=== PATIENT | female | born 1975 | race Caucasian/White ===

== ENCOUNTER 2022-05-24 17:08 | Emergency (ER) | payer BC, SELFPAY ==
[2022-05-24 17:33] VITALS: BP 130/82; PULSE 71; RESP 18; TEMP 36.2; O2SAT 100; BMI 31.0
--- NOTE | 2022-05-24 17:55 | ED.NURSE ---
MD in room to perform breast exam with commercial real estate underwriter at bedside.
--- NOTE | 2022-05-24 18:03 | ED.GENADULT ---
HPI - General Adult General Time Seen by Provider: 18:03 Date Seen: 05/24/22 Chief complaint: Breast Symptoms Stated complaint: Breast Pain Time Seen by Provider: 05/24/22 17:11 Source: patient Mode of arrival: ambulatory Limitations: no limitations History of Present Illness HPI narrative: Patient is a 39 year white female has right breast tenderness. She notices soreness at the base of the breast and when she squeezes her breast at the base at the chest wall junction of the breast. She has noticed no palpable masses, does not recall any injury. She has noticed no redness. She feels maybe the right breast is a little more swollen. No fevers or chills. No trauma. No history of bleeding or clotting problems patient has had saphenous vein resection lower extremities Related Data Home Medications Medication Instructions Recorded Confirmed albuterol sulfate 90 mcg/actuation g inhalation 05/24/22 05/24/22 aerosol inhaler (Ventolin HFA) duloxetine 30 mg capsule,delayed applicator PO 05/24/22 05/24/22 release hydroxychloroquine 200 mg tablet ea PO 05/24/22 05/24/22 lorazepam 1 mg tablet 1 mg PO PRN 05/24/22 05/24/22 prednisone 5 mg tablet 5 mg PO PRN 05/24/22 05/24/22 Previous Rx's Medication Instructions Recorded dicloxacillin 500 mg capsule 500 mg PO QID #30 caps 05/24/22 Allergies Allergy/AdvReac Type Severity Reaction Status Date / Time No Known Drug Allergies Allergy Verified 05/24/22 17:32 Review of Systems Status of ROS: Reports: 6 or more systems reviewed and unremarkable except as noted in History and below [facility] Social History Smoking Status: Never smoker Do you use any of these nicotine containing products: None Second hand tobacco smoke exposure: No How often do you have a drink containing alcohol: 2-3 times a week How many standard drinks containing alcohol do you have on a typical day: 1 or 2 How often do you have six or more drinks on one occasion: Less than monthly AUDIT-C Alcohol total score: 4 Non-prescribed substance use: denies use service: No Exam Narrative: Exam Narrative: Objective the patient's vital signs unremarkable She is in no apparent distress Right breast with nursing staff suman, present, examination of the right breast shows tenderness at the base of the breast and in the body of the breast no palpable masses, no redness or warmth maybe some just very slight right breast enlargement there is no dimpling of the skin over the breast, no discrete palpable mass. Definitely can recreate her symptoms with palpation however Const: Vital Signs, click to edit/add: Vital Signs - 24 hr 05/24/22 17:33 Temperature 97.1 F L Pulse Rate [Pulse Oximeter] 71 Respiratory Rate 18 Blood Pressure [Ri t Upper Arm] 130/82 Pulse Oximetry 100 Oxygen Delivery Me thod Room Air Course Vital Signs Vital signs: Initial Vital Signs Temperature 97.1 F L 05/24/22 17:33 Temperature Source Temporal Artery Scan 05/24/22 17:33 Pulse Rate 71 05/24/22 17:33 Pulse Rhythm 05/24/22 17:33 Respiratory Rate 18 05/24/22 17:33 Blood Pressure 130/82 05/24/22 17:33 Blood Pressure Mean 98 05/24/22 17:33 Blood Pressure Position Supine 05/24/22 17:33 Pulse Oximetry 100 05/24/22 17:33 Oxygen Delivery Method 05/24/22 17:33 Vital Signs Temperature 97.1 F L 05/24/22 17:33 Pulse Rate 71 05/24/22 17:33 Respiratory Rate 18 05/24/22 17:33 Blood Pressure 130/82 05/24/22 17:33 Pulse Oximetry 100 05/24/22 17:33 Oxygen Delivery Method 05/24/22 17:33 Temperature 97.1 F L 05/24/22 17:33 Pulse Rate 71 05/24/22 17:33 Respiratory Rate 18 05/24/22 17:33 Blood Pressure 130/82 05/24/22 17:33 Pulse Oximetry 100 05/24/22 17:33 Oxygen Delivery Method 05/24/22 17:33 Medical Decision Making MDM Narrative Medical decision making narrative: Given the superficial nature of her discomfort I think this is more inflammatory versus mild infection in the breast I would treat her with dicloxacillin 500 q.i.d. x7 days would also have her take ibuprofen or Aleve on a regular basis light activity firm support for the next several days and follow up with her primary care physician in 2-3 days for reassessment, certainly return to ED sooner problems or concerns. Discharge Plan Discharge Clinical Impression: Acute breast pain Patient Disposition: Home, Self-Care Condition: Stable Additional Instructions: Hair Blender activity, firm support, antibiotic x7 days, Advil or Aleve times 5-7 days, follow-up with primary care in 2 3 days Activity Level: Light activity Discharge Diet: Regular Prescriptions: New dicloxacillin 500 mg capsule 500 mg PO QID Qty: 30 0RF No Action hydroxychloroquine 200 mg tablet PO Label Comments: TAKE 1 TABLET BY MOUTH ONCE DAILY duloxetine 30 mg capsule,delayed release(DR/EC) PO lorazepam 1 mg tablet 1 mg PO PRN Label Comments: TAKE 1 TABLET BY MOUTH AT BEDTIME NEEDED . TAKE 0.5 (ONE-HALF) TO 1 ADDITIONAL TABLET DAILY IF NEEDED. prednisone 5 mg tablet 5 mg PO PRN albuterol sulfate [Ventolin HFA] 90 mcg/actuation HFA aerosol inhaler inhalation Label Comments: INHALE 2 PUFFS BY MOUTH EVERY 4 HOURS NEEDED Follow Up/Referrals: Provider,Not a Local [Primary Care Provider] - Stand Alone Forms: [facility] Info Instructions
--- OUTSIDE RECORDS SUMMARY | 2022-05-30 16:18 | XMS_ITS | Continuity of Care Document ---
:1975 Author Organization [facility] Care Team Providers Name Role Phone [facility] Unavailable Unavailable Social History Combined list of available smoking, tobacco, and other social history [facility]. Social History Type Response Date Comment Source This section is an empty social history section. [facility]
--- OUTSIDE RECORDS SUMMARY | 2022-05-30 16:18 | XMS_ITS | Clinical Summary ---
:1975 Author Organization [facility] [place] [address] Care Team Providers Name Role Phone Lisa Alfredo MD Primary Care Provider [phone] Allergies No known active allergies Medications Medication Sig Dispensed Refills Start Date End Date Status triamcinolone 0.025% Apply topically 80 g 1 04/07/2021 Active topical (ARISTOCORT) to affected 0.025 % area(s) 2 times creamIndications: daily. Dermatitis Ventolin HFA 90 2 Puffs every 4 0 11/09/2021 Active mcg/actuation inhaler hours if needed. hydrOXYchloroQUINE Take 200 mg by 0 12/21/2021 Active (PLAQUENIL) 200 mg mouth once tablet daily. polyethylene glycol Mix 17 g in 0 03/29/2022 Active (MIRALAX; GLYCOLAX) 17 g liquid then take powder for solution by mouth. sennosides-docusate Take 1 Tablet by 0 04/04/2022 Active (SENOKOT S) (8.6-50 mg) mouth once tablet daily. LORazepam (ATIVAN) 1 mg TAKE 1 TABLET BY 30 Tablet 0 2 Active tabletIndications: MOUTH AT BEDTIME Insomnia, idiopathic NEEDED . 1/2 TO 1 ADDITIONAL TABLET DAILY IF NEEDED DULoxetine (CYMBALTA) 30 Take 1 capsule 30 Capsule 0 2 Active mg Delayed-release by mouth once capsuleIndications: daily Generalized anxiety disorder, Palpitations Active Problems Problem Noted Date Inflammatory polyarthritis 03/07/2018 Overview: Dr. Chloé Ta. On plaquinel. Insomnia 04/30/2013 Chronic interstitial cystitis 10/28/2010 Overview: Dr. Valero, urologist. Not seen for some time. Major depressive disorder, recurrent episode, in full remission 04/14/2010 Generalized anxiety disorder 04/14/2010 Seasonal allergies 04/13/2010 Routine health maintenance 04/13/2010 Overview: Last cpx-05/26 Last breast exam-03/28 Last lipid 05/26, LDL-75 Family history of colonic polyps Resolved Problems Problem Noted Date Resolved Date Depression with anxiety 04/13/2010 04/14/2010 Encounters Date Type Specialty Care Team Description 04/21/2022 E-Visit Perla, Shanika 04/13/2022 Anesthesia Event Paul Gutiérrez MD 04/13/2022 Surgery Geoff Cintron MD 04/13/2022 Hospital Encounter Geoff Cintron MD 04/13/2022 Travel 04/11/2022 Refill Lisa Alfredo MD (Duloxetine) 04/04/2022 Ancillary Procedure 04/04/2022 Office Visit Charis Roberto, Consult ( 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) 04/04/2022 Refill Lisa Alfredo MD (Lorazepam) 04/04/2022 Travel from Last 3 Months Immunizations Name Administration Dates Next Due COVID-19 vaccine (Karen-J&J) MYRIAM DAVENPORT 10/25/2020 Hepatitis A (Adult) 03/22/2009, 03/05/2007 Hepatitis A, Unspecified 02/03/2007 Influenza, IIV3 (Age >=3 years) 05/04/2011, 05/12/2010 Influenza,LAIV4 Live Intranasal (Flumist) 07/10/2014, 2011 Td (Age >=7 Years) 06/17/2004 Tdap 07/01/2012 Tuberculin (PPD) 11/13/2006 Family History Medical History Relation Name Comments Hypertension Brother Other Daughter 1 adopt-Caleb Other Daughter 2 adopt-Yolis Cancer-colon Father polyps Hyperlipidemia Father Diverticulosis Mother Hypertension Mother Uterine cancer Mother Hyperlipidemia Paternal Aunt Heart Disease Paternal Grandfather Hyperlipidemia Paternal Grandfather Good Health Paternal Grandmother dementia Other Paternal Grandmother Coronary artery disease Paternal Uncle NM Hyperlipidemia Paternal Uncle Good Health Son 1 Hargill Good Health Son 2 Conor Relation Name Status Comments Brother Alive Daughter 1 adopt-Caleb Alive Daughter 2 adopt-Yolis Alive Father Alive Maternal Grandfather (Age 70's) emphyse ma Maternal Grandmother (Age late 70's) em physema Mother Alive Paternal Aunt Paternal Grandfather (Age 50) [place] Paternal Grandmother Paternal Uncle Son 1 [place] Alive Son 2 Conor Alive Social History Tobacco Use Types Packs/Day Years Used Date Never Smoker Smokeless Tobacco: Never Used Tobacco Cessation: Counseling Given: Yes Alcohol Use Standard Drinks/Week Comments Yes 0 (1 standard drink = 0.6 oz pure alcoho l) 2 weekly Alcohol Habits Answer Date Recorded How often do you have a drink containing alcohol? 2-3 times a week 08/11/2020 How many drinks containing alcohol do you have on a 1 or 2 08/11/2020 typical day when you are drinking? How often do you have six or more drinks on one Less than mo nthly 08/11/2020 occasion? Comment: 2 weekly 04/04/2021 Sex Assigned at Date Recorded Not on file Obstetrics History Para Term AB IAB SAB Ectopic Multiple Living Live Births 2 2 2 Date Outcome GA Total Labor/2nd/3rd Weight Sex Delivery Anes PTL Essence A 1 A5 Name Clin Labor Term Term Comments No complications Last Filed Vital Signs Vital Sign Reading Time Taken Comments Blood Pressure 120/81 04/13/2022 12:22 PM CDT Pulse 66 04/13/2022 12:22 PM CDT Temperature 36.5 ??C (97.7 ??F) 04/13/2022 11:53 AM CDT Respiratory Rate 16 04/13/2022 12:22 PM CDT Oxygen Saturation 99% 04/13/2022 12:22 PM CDT Inhaled Oxygen Concentration - - Weight 86.8 kg (191 lb 6.4 oz) 04/13/2022 10:31 AM CDT Height 167.6 cm (5' 6) 04/13/2022 10:31 AM CDT Body Mass Index 30.89 04/13/2022 10:31 AM CDT Plan of Treatment Health Maintenance Due Date Last Done Comments Hepatitis C screening for age 1005/23/1992 18-79 COVID-19 vaccine series (2 - 12/20/2020 10/25/2020 Booster for Karen series) Mammogram for age 45-75 12/16/2021 12/16/2020 Depression screening for age 12+ 04/04/2022 04/04/2021, , 04/01/2020, Additional history exists Influenza for age 9-49 04/20/2022 07/10/2014, 07/01/2012, 05/04/2011, Additional history exists Tetanus booster 07/01/2022 07/01/2012, 06/17/2004 Lipids for age 45-75 03/07/2023 03/07/2018, 02/04/2016, 04/14/2010 BMI (ht and wt on same day) for 04/04/2023 04/04/2022, 03/20, age 18+ 11/05/2020, Additional history exists Pap test for age 21-65 04/04/2026 04/04/2021, 04/04/2021, 02/07/2017, Additional history exists Colonoscopy through age 75 04/13/2027 04/13/2022 Tdap Completed 07/01/2012 Procedures Procedure Name Priority Date/Time Associated Diagnosis Comme nts COLONOSCOPY 04/13/2022 11:30 hemorroids, AM CDT diverticulosis COLONOSCOPY 04/13/2022 11:16 Results for this AM CDT procedure are i n the results section. URINE Preop 04/13/2022 10:16 Results for this AM CDT procedure are i n the results section. TISSUE TRANSGLUTAMINASE Routine 04/04/2022 9:55 Constipation, Results for this IGA AM CDT unspecified procedure are i n constipation type the result s section. PLATELET ESTIMATE Routine 04/04/2022 9:55 Constipation, Result s for this AM CDT unspecified procedure are i n constipation type the result s section. CBC WITH AUTO Routine 04/04/2022 9:55 Constipation, Results fo r this DIFFERENTIAL AM CDT unspecified procedure are i n constipation type the result s section. CELIAC CASCADE PANEL Routine 04/04/2022 9:55 Constipation, Res ults for this AM CDT unspecified procedure are i n constipation type the result s section. TSH WITH REFLEX Routine 04/04/2022 9:55 Constipation, Results for this AM CDT unspecified procedure are i n constipation type the result s section. BASIC METABOLIC PANEL Routine 04/04/2022 9:55 Constipation, Re sults for this AM CDT unspecified procedure are i n constipation type the result s section. HEPATIC FUNCTION PANEL Routine 04/04/2022 9:55 Constipation, R esults for this AM CDT unspecified procedure are i n constipation type the result s section. CBC WITH AUTO Routine 04/04/2022 9:55 Constipation, Results fo r this DIFFERENTIAL AM CDT unspecified procedure are i n constipation type the result s section. XR ABDOMEN 2 VIEW FLAT Routine 04/04/2022 9:47 Constipation, R esults for this AND UPRIGHT OR AM CDT unspecified procedure are in DECUBITUS constipation type the result s section. from Last 3 Months Results COLONOSCOPY (04/13/2022 11:16 AM CDT) Specimen (Source) Anatomical Collection Method Collection Time Re ceived Time Location / / Volume Laterality 04/13/2022 11:16 AM CDT Narrative This result has an attachment that is no t available. Transcriptions Geoff Cintron MD - 04/13/2022 12 :44 PM CDT [facility] Patient Name: Jenny Em Procedure Date: 04/13/2022 Gender: Female Date of : 1975 Admit Type: Ambulatory Procedure: Colonoscopy Proceduralist: Geoff Cintron MD Referring MD: Charis Roberto Indications/Pre-Op Diagnosis: Screening in patient at increased risk: Family history of 1st-degree relative with col orectal cancer before age 60 years Medications: Monitored Anesthesia Care Procedure Description: The patient had risks, benefits and alt ernatives explained to and gave informed consent. The patient had a sta ble cardiopulmonary status and judged an adequate candidate for consci ous sedation. The endoscope [id number]-[id number] was pas sed through the anus and advanced to the cecum, identified by appendiceal orifice and ileocecal valve. The colonoscopy was performed without diffi culty. The patient tolerated the procedure well. The quality of the peg l preparation was good. Complications: No immediate complication s. Estimated Blood Loss & Specimen: Estimated blood loss: none. Specimen collected: None Findings: Normal mucosa was found in the entire c olon. A few small-mouthed diverticula were fo und in the sigmoid colon and descending colon. Internal hemorrhoids were found during retroflexion. The hemorrhoids were Grade II (internal hemorrhoids ilia t prolapse but reduce spontaneously). The exam was otherwise without abnormal ity. Impressions/Post-Op Diagnosis: - Normal mucosa in the entire examined colon. - Diverticulosis in the sigmoid colon a nd in the descending colon. - Internal hemorrhoids. - The examination was otherwise normal. - No specimens collected. Recommendation: - Repeat colonoscopy in 5 years for juli veillance. - High fiber diet Geoff Cintron MD 04/13/2022 12:44:38 PM This report has been signed electronical ly. Note Initiated On: 04/13/2022 11:16 AM Scope Withdrawal Time 0 hours 7 minutes 30 seconds Total Procedure Duration Time 0 hours 15 minutes 6 seconds Geoff Cintron MD PROCEDURE ORD Urine (04/13/2022 10:16 AM CDT) [facility] Signature ,URIN Negative Negative 04/13/2022 [place] [facility] 10:28 AM CDT [facility] Specimen Anatomical Collection Method Collection Time Receive d Time (Source) Location / / Volume Laterality Urine URINE SPECIMEN / Non-Blood / 04/13/2022 10:16 022 Unknown Unknown AM CDT 10:16 AM CDT Cahris Roberto COMPUTER COMPOSITOR URINE Performing Organization Address City/State/ZIP Code Phon e Number [facility] INTERNAL ZIP [address] [place] [address] CELIAC CASCADE PANEL (04/04/2022 9:55 AM CDT) P athologist Signature IGA 135.68 84.50 - 04/05/2022 [facility] 499.00 8:01 AM CDT LABORATORY-CENT mg/dL [facility] Specimen Anatomical Collection Method Collection Time Receive d Time (Source) Location / / Volume Laterality Blood BLOOD SPECIMEN / Butterfly / 04/04/2022 9:55 AM 04/04 9:56 Unknown Unknown CDT AM CDT Narrative [facility] LABORATORY-CENTRAL LABORAT ORY - 04/05/2022 8:01 AM CDT Reflexed to Tissue Transglutaminase IgA Charis Roberto COMPUTER COMPOSITOR SEND OUTS Performing Organization Address City/State/ZIP Code Phon e Number [facility] [address] [place] [address] LABORATORY-CENTRAL 2000 LABORATORY (ABNORMAL) CBC WITH AUTO DIFFERENTIAL (04/04/2022 9:55 AM CDT) Patholo gist Method Time Signature WHITE BLOOD 7.4 4.5 - 11.0 04/04/2022 [facility] COUNT thou/cu mm 11:15 AM CDT [facility] RED BLOOD COUNT 5.18 4.00 - 04/04/2022 [facility] 5.20 11:15 AM CDT [facility] mil/cu mm CENTER HEMOGLOBIN 15.5 12.0 - 04/04/2022 [facility] 16.0 g/dL 11:15 AM CDT [facility] HEMATOCRIT 47.4 33.0 - 04/04/2022 [facility] 51.0 % 11:15 AM CDT [facility] MCV 92 80 - 100 04/04/2022 [facility] fL 11:15 AM CDT [facility] MCH 29.9 26.0 - 04/04/2022 [facility] 34.0 pg 11:15 AM CDT [facility] MCHC 32.7 32.0 - 04/04/2022 [facility] 36.0 g/dL 11:15 AM CDT [facility] RDW 13.8 11.5 - 04/04/2022 [facility] 15.5 % 11:15 AM CDT [facility] PLATELET COUNT 273 140 - 440 04/04/2022 [facility] thou/cu mm 11:15 AM CDT [facility] MPV 11.5 (H) 6.5 - 11.0 04/04/2022 [facility] fL 11:15 AM CDT [facility] NRBC 0.0 % 04/04/2022 [facility] 11:15 AM CDT [facility] ABS NRBC 0.0 thou /cu 04/04/2022 [facility] mm 11:15 AM CDT [facility] % NEUT 57.8 % 04/04/2022 [facility] 11:15 AM CDT [facility] % LYMPH 31.0 % 04/04/2022 [facility] 11:15 AM CDT [facility] % MONO 6.4 % 04/04/2022 [facility] 11:15 AM CDT [facility] % EOS 3.0 % 04/04/2022 [facility] 11:15 AM CDT [facility] % BASO 1.4 % 04/04/2022 [facility] 11:15 AM CDT [facility] % IMMATURE GRAN 0.4 % 04/04/2022 [facility] (METAS,MYELOS,SC 11:15 AM CDT [facility] M ED OS) CENTER ABSOLUTE 4.3 1.7 - 7.0 04/04/2022 [facility] NEUTROPHILS thou/cu mm 11:15 AM CDT [facility] ABSOLUTE 2.3 0.9 - 2.9 04/04/2022 [facility] LYMPHOCYTES thou/cu mm 11:15 AM CDT [facility] ABSOLUTE 0.5 <0.9 04/04/2022 [facility] MONOCYTES thou/cu mm 11:15 AM CDT [facility] ABSOLUTE 0.2 <0.5 04/04/2022 [facility] EOSINOPHILS thou/cu mm 11:15 AM CDT [facility] ABSOLUTE 0.1 <0.3 04/04/2022 [facility] BASOPHILS thou/cu mm 11:15 AM CDT [facility] ABSOLUTE 0.0 <0.3 04/04/2022 [facility] IMMATURE thou/cu mm 11:15 AM CDT [facility] GRANULOCYTES(MET CENTER ,MYELOS,PROS) Specimen Anatomical Collection Method Collection Time Receive d Time (Source) Location / / Volume Laterality Blood BLOOD SPECIMEN / Butterfly / 04/04/2022 9:55 AM 04/04 9:56 Unknown Unknown CDT AM CDT Charis Roberto NP HEMATOLOGY Performing Organization Address City/[facility]/ZIP [facility] Phon e Number [address] [address] [place] PLATELET ESTIMATE (04/04/2022 9:55 AM CDT) [facility] Method Time Signature PLATELET Adequate Adequate, No 04/04/2022 [facility] ESTIMATE estimate 11:15 AM CDT [facility] Specimen Anatomical Collection Method Collection Time Receive d Time (Source) Location / / Volume Laterality Blood BLOOD SPECIMEN / Butterfly / 04/04/2022 9:55 AM 04/04 9:56 Unknown Unknown CDT AM CDT Charis Roberto NP HEMATOLOGY Performing Organization Address [facility] Phon e Number [address] [address] [place] TSH WITH REFLEX (04/04/2022 9:55 AM CDT) athologist Signature TSH 2.93 0.35 - 4.94 04/04/2022 [facility] uIU/mL 11:08 AM CDT [facility] Specimen Anatomical Collection Method Collection Time Receive d Time (Source) Location / / Volume Laterality Blood BLOOD SPECIMEN / Butterfly / 04/04/2022 9:55 AM 04/04 9:56 Unknown Unknown CDT AM CDT Narrative [facility] - 022 11:08 AM CDT In Adults, TSH values between 5.00 and 10.00 uIU/ml do not necessarily indicate the presence of Hyp othyroidism. Correlation with clinical findings such as presence of goiter and/or Thyroperoxidase (TPO) Antibody ma y be helpful. For more information please refer to DEV 20 04; 291: 228-238. Charis Roberto NP CHEMISTRY Performing Organization Address City/[facility] Phon e Number [address] [address] [place] TISSUE TRANSGLUTAMINASE IGA (04/04/2022 9:55 AM CDT) Patholo gist Method Time Signature TISSUE 1.7 <4.0 U/ml 04/05/2022 [facility] TRANSGLUTAMINASE IGA 11:[address] [facility] TRA LABORATORY Comment: Celiac disease unlikely unless IgA deficient. Recommend IgA levels if not already performed. Specimen Anatomical Collection Method Collection Time Receive d Time (Source) Location / / Volume Laterality Blood BLOOD SPECIMEN / Butterfly / 04/04/2022 9:55 AM 04/04 9:56 Unknown Unknown CDT AM CDT Narrative [facility] LABORATORY-CENTRAL LABORAT ORY - 04/05/2022 11:58 AM CDT Negative ?<4.0 Weak Positive ?? 4-10 Positive ?>10.0 This test should not be solely relied up on to establish a diagnosis of celiac disease. Affected individuals who have been on a gluten-free diet prior to testing may have a negative result. These results were obtained using the [employer] te R h-tTG IgA CANDACE assay. ??Values obtained from other manufacturers' assay methods may not be used interchangeably. Charis Roberto NP SEND OUTS Performing Organization Address City/State/ZIP Code Phon e Number [facility] [address] [place] [address] LABORATORY-CENTRAL 2000 LABORATORY (ABNORMAL) HEPATIC FUNCTION PANEL (04/04/2022 9:55 AM CDT) P athologist Signature ALBUMIN 4.2 3.5 - 5.2 04/04/2022 [facility] g/dL 10:48 AM CDT [facility] PROTEIN,TOTAL 7.3 6.0 - 8.0 04/04/2022 [facility] g/dL 10:48 AM CDT [facility] GLOBULIN 3.1 2.0 - 3.7 04/04/2022 [facility] g/dL 10:48 AM CDT [facility] A/G RATIO 1.4 1.0 - 2.0 04/04/2022 [facility] 10:48 AM CDT [facility] BILIRUBIN,TOTAL 0.5 0.2 - 1.2 04/04/2022 [facility] mg/dL 10:48 AM CDT [facility] BILIRUBIN,DIRECT 0.2 0.1 - 0.5 04/04/2022 [facility] mg/dL 10:48 AM CDT [facility] BILIRUBIN,INDIRE 0.3 0.2 - 0.8 04/04/[address] [facility] [address] mg/dL 10:48 AM CDT [facility] ALK PHOSPHATASE 46 (L) 50 - 136 04/04/2022 [facility] IU/L 10:48 AM CDT [facility] ALT (SGPT) 24 8 - 45 04/04/2022 [facility] IU/L 10:48 AM CDT [facility] AST (SGOT) 21 2 - 40 04/04/2022 [facility] IU/L 10:48 AM CDT [facility] Specimen Anatomical Collection Method Collection Time Receive d Time (Source) Location / / Volume Laterality Blood BLOOD SPECIMEN / Butterfly / 04/04/2022 9:55 AM 04/04 9:56 Unknown Unknown CDT AM CDT Charis Roberto NP CHEMISTRY Performing Organization Address City/State/ZIP Code Phon e Number [place] [id number] [place] [address] CENTER (ABNORMAL) BASIC METABOLIC PANEL (04/04/2022 9:55 AM CDT) P athologist Signature SODIUM 138 135 - 145 04/04/2022 [facility] mmol/L 10:46 AM CDT [facility] POTASSIUM 4.2 3.5 - 5.0 04/04/2022 [facility] mmol/L 10:46 AM T [facility] CHLORIDE 109 98 - 110 04/04/2022 [facility] mmol/L 10:46 AM T [facility] CO2,TOTAL 21 21 - 31 04/04/2022 [facility] mmol/L 10:46 AM CDT [facility] ANION GAP 8 5 - 18 04/04/2022 [facility] 10:46 AM CDT [facility] GLUCOSE 82 65 - 100 04/04/2022 [facility] mg/dL 10:46 AM CDT [facility] CALCIUM 9.0 8.5 - 10.5 04/04/2022 [facility] mg/dL 10:46 AM CDT [facility] BUN 12 8 - 25 04/04/2022 [facility] mg/dL 10:46 AM CDT [facility] CREATININE 0.83 0.57 - 04/04/2022 [facility] 1.11 mg/dL 10:46 AM CDT [facility] BUN/CREAT RATIO 14 10 - 20 04/04/2022 [facility] 10:46 AM [facility] eGFR 88 (L) >90 04/04/2022 [facility] mL/min/1.7 10:46 AM [facility] 3m2 CENTER Comment: As of 2021, eGFR is calcu lated by the CKD-EPI creatinine equation without race adjustment. eGFR can be inf luenced by muscle mass, exercise, and diet. The reported eGFR is an estimation only and is only applicable if the renal function is stable. Specimen Anatomical Collection Method Collection Time Receive d Time (Source) Location / / Volume Laterality Blood BLOOD SPECIMEN / Butterfly / 04/04/2022 9:55 AM 04/04 9:56 Unknown Unknown CDT AM CDT Charis Roberto COMPUTER COMPOSITOR CHEMISTRY Performing Organization Address City/State/ZIP Code Phon e Number [place] [phone] XR ABDOMEN 2 VIEW FLAT AND UPRIGHT OR DECUBITUS (04/04/2022 9:47 AM CDT) Anatomical Region Laterality Modality Abdomen Computed Radiography Specimen (Source) Anatomical Collection Method Collection Time Re ceived Time Location / / Volume Laterality 04/04/2022 3:38 PM CDT Narrative 04/04/2022 3:38 PM CDT For Patients: ??As a result of the Cures Act, medical imaging exams and procedure report s are released immediately into your [facility] medical record. ??You may view this report before your referring provider. ??If you have questions, please contact your health care provider. INDICATION: Constipation. TECHNIQUE: Upright and supine views of the abdomen. Total of 4 images. COMPARISON : None. FINDINGS / IMPRESSION : The bowel gas pattern is nonobstructive. Upright exam shows no free air under the hemidiaphragms. Extensive stool throughout large bowel. No pathologic abdominal calcifications. SI joints unremarkable. Dictated by Sal Da Silva MD @ Apr 04 2 ??3:38PM (Electronically Signed) ?? Procedure Note Sal Da Silva MD - 04/04/2022F ormatting of this note might be different from the original. For Patients: As a result of the Cures Act, medical imaging exams and procedure reports are released immediately into your electronic medical record. You may view this report before your referring provider. If you have questions, please contact [facility] health care provider. INDICATION: Constipation. TECHNIQUE: Upright and supine views of the abdomen. Total of 4 images. COMPARISON : None. FINDINGS / IMPRESSION : The bowel gas pattern is nonobstructive. Upright exam shows no free air under the hemidiaphragms. Extensive stool throughout large bowel. No pathologic abdominal calcifications. SI joints unremarkable. 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
== END 2022-05-24 18:25 | disposition home or self-care (01) ==
PROVIDERS: Emergency Provider Family Medicine
DX: N64.4 Mastodynia (principal)
CPT/HCPCS: 99283